=== PATIENT | male | born 1940 | race Caucasian/White ===

== ENCOUNTER 2016-07-18 06:28 | Day surgery (SDC) | payer MEDICARE ==
[2016-06-16 04:01] VITALS: BMI 24.7
[2016-07-18] MEDS ORDERED: CEFAZOLIN 1 GM VIAL ONE (06:37)
[2016-07-18 07:00] LABS: AUTOMATED EOSINOPHIL 3.3 % (0-5); AUTOMATED MONOCYTE 7.5 % (3-10); AUTOMATED NEUTROPHIL 77.2 % (45-76); MPV 7.4 fL (7.4-10.4)
[2016-07-18 07:07] LABS: BLOOD UREA NITROGEN 37 MG/DL (9-20); CALC CORRECTED 9.2 MG/DL (8.4-10.2); CALCIUM 8.4 MG/DL (8.4-10.2); CALCULATED OSMOLALITY 272 MOs/Kg (270-290); CHLORIDE 103 mEq/L (98-107); GLUCOSE 84 MG/DL (70-99); SODIUM LEVEL 137 mEq/L (137-146); TOTAL PROTEIN 6.8 G/DL (6.3-8.2)
[2016-07-18 07:24] LABS: LEUKOCYTES/URINE 2+ (NEGATIVE); NITRITE/URINE NEG (NEGATIVE); URINE OCCULT BLOOD NEG (NEG/TRACE)
[2016-07-18 07:37] LABS: WBC/URINE 20-30 (0-2)
[2016-07-18] MEDS ORDERED: HYDROmorphone 1 MG INJECTION IV PRN ×2 (07:39)
[2016-07-18] MEDS ORDERED: MEPERIDINE 25 MG/ML TUBEX IV PRN (07:39)
[2016-07-18] MEDS ORDERED: ONDANSETRON HCL 4 MG ODT TAB PO PRN (07:39)
[2016-07-18] MEDS ORDERED: FENTANYL 100 MCG/2 ML VIAL IV PRN ×2 (07:39)
[2016-07-18] MEDS ORDERED: ONDANSETRON HCL 4 MG/2 ML VIAL IV PRN (07:39)
[2016-07-18] MEDS ORDERED: hydrALAZINE 20 MG/ML VIAL IV PRN (07:39)
[2016-07-18] MEDS ORDERED: PROMETHAZINE 25 MG/ML VIAL IV PRN (07:39)
[2016-07-18] MEDS ORDERED: LABETALOL 20 MG/4 ML SYRINGE IV PRN (07:39)
--- NOTE | 2016-07-18 07:40 | SC.ANESPOS ---
[id number], Hemodynamically Stable, Pain Control Adequate Phase I & II Recovery Complete: Yes Apparent Anesthesia Complication: No : N - Vital Signs Blood Pressure: 116/67 Pulse: 79 Resp Rate: 18 O2 Sat: 98 Temp: 98.2 F
--- NOTE | 2016-07-18 07:45 | HIM.ANES ---
Anesthesia Evaluation & Plan Diagnoses: OTHER RETENTION OF URINE (07/18/16) Consented Procedure: TRANSURETHRAL RESECTION AND VAPORIZATION OF PROSTATE GLAND - Focused Review of Systems Cardiac History: Yes: Hx Hypertension, Hx Afib/Aflutter, Hx Cardiac Disorders, Hx Abnormal Cholesterol/Hyperlipidemia No: Hx Deep Vein Thrombosis HEENT: Yes: Hx Hearing Impairment (CHEESH-NA), Hx Vision Problem (PRESCRIPTION GLASSES ), Other HEENT Problems Respiratory: Yes: Hx Snoring No: Hx Emphysema, Hx Chronic Obstructive Pulmonary Disease (COPD), Hx Home O2 , Hx Recent Cold/Flu Gastrointestinal: Yes: Hx Colonoscopy No: Hx Gastroesophageal Reflux Disease, Hx Gastrointestinal Disorders Genitourinary: No: Hx Renal Failure Neurological/Musculoskeletal: Yes: Hx Dementia, Hx Back Pain, Hx Numbness, Tingling, Weakness in Arms & Legs (BILATERAL FEET), Hx Neurological Disorders Other Neurological Problems: DIABETIC NEUROPATHY Psychological: No Hx Depression, No Hx Mental/Emotional Disorders Endocrine: Yes: Hx Non-Insulin Dependent Diabetes Blood/Autoimmune: Yes: Hx Anemia No: Hx Blood Transfusions, Hx AIDS, Hx Hepatitis (type) Smoking Status: Never smoker Hx Stress Test (date): No Hx Echocardiogram (date): No Hx Chest Xray (date): Yes (06/11/16 SCARRING LEFT LUNG BASE NO EDEMA) Surgical History: Yes: Ablation ([address] YEE IN [place]), Cholecystectomy No: T&A Other Surgical History: ABLATION AT [facility] - Focused Physical Exam NPO since: 07/17/16 Mallampati: Class II Thyromental Distance: Greater than 3 Neck: Full Range of Motion Dental: Normal - no significant findings Cardiovascular/Chest: Normal Respiratory: Lungs clear Any problems with anesthesia, including nausea and vomiting?: Yes (N&V) Any relatives with a history of Malignant Hyperthermia?: No Beta Nisha given (if appropriate): Yes Does the patient have a history of Motion Sickness-: No Other: Problem List Problem Status Onset Cellulitis of foot Acute Diabetes mellitus Acute Diabetic foot ulcer Acute Hematuria Acute Leukocytosis Acute UTI (urinary tract infection) Acute Urinary retention Acute Urinary retention with incomplete bladder emptying Acute Afib Chronic Hypertension Chronic CBC/BMP/Other 07/18/16 06:45 07/18/16 06:45 Allergies Allergy/AdvReac Type Severity Reaction Status Date / Time cefodizime Allergy Hypertensio Verified 07/18/16 07:16 n Home Medications Medication Instructions Recorded Last Taken Type Amlodipine [Norvasc] 5 mg PO DAILY 02/07/16 07/18/16 05:00 History Fenofibrate [Lofibra] 160 mg PO DAILY 02/07/16 07/17/16 06:00 History Lisinopril [Prinivil] 20 mg PO DAILY 02/07/16 07/18/16 05:00 History MetFORMIN (Immediate Release) 1,000 mg PO TID PRN 02/07/16 07/16/16 History [GLUCOPHAGE Immed Release] Carvedilol [Coreg] 25 mg PO BID 06/11/16 07/18/16 05:00 History Glipizide 10 mg PO BID 06/11/16 07/17/16 08:00 History Cephalexin Monohydrate [Keflex] 500 mg PO Q8H #30 cap 06/16/16 07/17/16 18:00 Rx Oxycodone Immediate Release 5 mg PO Q4H PRN #30 tablet 06/16/16 07/17/16 21:00 Rx [Oxycodone Immediate Release (OxyIR)] Aspirin [Aspirin EC] 81 mg PO DAILY 07/17/16 07/16/16 History Height and Weight Patient's height 6 ft 2 in Patient's weight 185 lb BMI 24.7 Vital Signs Temperature 98.2 F 07/18/16 07:40 Pulse Rate 79 07/18/16 07:40 Respiratory Rate 18 07/18/16 07:40 Blood Pressure 116/67 07/18/16 07:40 Pulse Oxygen Saturation 98 07/18/16 07:40 - Anesthetic Plan Anesthesia Type: General ASA Class: 3 -: I have examined this patient and reviewed the medical record. The patient has been assessed prior to anesthesia. Risks and benefits of anesthesia and anesthetic technique options have been discussed and all questions answered. The patient accepts the risk and desires me to proceed with the planned anesthetic.
[2016-07-18] MEDS ORDERED: Levofloxacin 500 mg/100 ml D5W 500 MG/100 ML RTU IV ONE (09:05)
[2016-07-18] MEDS ORDERED: MetFORMIN 1000 MG IMMED REL TAB PO PRN (10:39)
--- NOTE | 2016-07-18 10:49 | HIMOPRPT ---
DATE OF PROCEDURE: 07/18/16 PREOPERATIVE DIAGNOSIS: [Benign prostatic hypertrophy, with AUR. POSTOPERATIVE DIAGNOSIS: SAME. PROCEDURE PERFORMED: Transurethral resection and vaporization of the prostate gland. ANESTHESIA: General with LMA. ANESTHESIOLOGIST: SURGEON: David Jackman MD PROCEDURE IN DETAIL: The patient was brought to the operating room and general anesthesia with LMA was given. Once adequate level of anesthesia was obtained, the patient was placed in lithotomy position.The indwelling cath was removed . Genitalia were prepped and draped in usual sterile manner. Urethra was calibrated and dilated to size 30-Ghanaian with Frances sounds without any difficulty, and a 25.6-Ghanaian continuous flow resectoscope sheath was introduced into the bladder and the findings on the cystoscopy were confirmed. No bladder abnormality was noted. Both ureteral orifices were seen. They were effluxing clear urine. They were away from the resection site. The verumontanum was prominent and normal. No other abnormality was noted. The TURVP was started with the wedge electrode starting at 7 o'clock position on the right side and taken to 11 o'clock position. As the resection was in progress, hemostasis was secured with cautery. Subsequently bladder neck was resected posteriorly and leveled with the base of the prostate gland. Subsequently, on the left side, resection was carried out from 5 o'clock to 1 o' clock position anteriorly. As the resection was in progress, hemostasis was achieved with cautery. Tissue in anterior aspect of the prostatic urethra and the base of the prostate gland was resected next. Subsequently the wedge electrode was changed with wire-loop electrode and apical tissue was further resected. Hemostasis was excellent at the end of the procedure and all the tissue was irrigated out of the bladder with Ellik evacuator and sent for histological examination. In the end of the procedure, a 22 size 3-way Lelsie catheter was introduced in the bladder with the help of a stylette and left indwelling with 30 mL balloon inflated. Continuous bladder irrigation was started on the operating table and the patient returned to the recovery room in stable and satisfactory condition. Estimated blood loss was less than 200 cubic centimeters. No complications with the surgery. The patient tolerated the procedure well and will be kept overnight for observation and discharged tomorrow with a Leslie catheter in place.
[2016-07-18] MEDS ORDERED: FENTANYL 100 MCG/2 ML VIAL ONE (11:52)
[2016-07-18] MEDS ORDERED: Vaccine Screening Complete SCH (15:00)
[2016-07-18] MEDS ORDERED: ONDANSETRON HCL 4 MG/2 ML VIAL IV ONE (15:38)
[2016-07-18] MEDS ORDERED: MIDAZOLAM 2 MG/2 ML VIAL IV ONE (15:38)
[2016-07-18] MEDS ORDERED: LIDOCAINE 100 MG PFS IV ONE (15:38)
[2016-07-18] MEDS ORDERED: FENTANYL 100 MCG/2 ML VIAL IV ONE (15:38)
[2016-07-18] MEDS ORDERED: EPHEDrine 50 MG/ML VIAL IM ONE (15:38)
[2016-07-18] MEDS ORDERED: PROPOFOL 200 MG/20 ML VIAL IV ONE (15:38)
[2016-07-18] MEDS ORDERED: DEXAMETHASONE 4 MG/ML VIAL IV ONE (15:38)
[2016-07-18] MEDS: GLIPIZIDE 10 MG TAB PO SCH (17:20)
[2016-07-18] MEDS: D5W/LR 1,000 ML IV SCH (17:20)
[2016-07-18] MEDS: CARVEDILOL 25 MG TABLET PO SCH (21:40)
[2016-07-18] MEDS ORDERED: HYDROCODONE 5 MG/ACETAMIN 325 MG TAB PO PRN (23:46)
[2016-07-19] MEDS: GLIPIZIDE 10 MG TAB PO SCH (06:24)
[2016-07-19] MEDS: D5W/LR 1,000 ML IV SCH ×2 (06:30→09:21)
[2016-07-19 07:26] LABS: AUTOMATED BASOPHIL 0.3 % (0-2); AUTOMATED EOSINOPHIL 0.3 % (0-5); AUTOMATED LYMPH 9.3 % (17-44); AUTOMATED MONOCYTE 7.6 % (3-10); AUTOMATED NEUTROPHIL 82.5 % (45-76); MPV 7.4 fL (7.4-10.4)
[2016-07-19 07:42] LABS: BLOOD UREA NITROGEN 29 MG/DL (9-20); CALCIUM 8.4 MG/DL (8.4-10.2); CALCULATED OSMOLALITY 270 MOs/Kg (270-290); CHLORIDE 103 mEq/L (98-107); GLUCOSE 138 MG/DL (70-99); SODIUM LEVEL 136 mEq/L (137-146)
[2016-07-19] MEDS ORDERED: FENOFIBRATE 145 MG TAB PO SCH (08:00)
[2016-07-19] MEDS: CARVEDILOL 25 MG TABLET PO SCH (08:05)
[2016-07-19] MEDS ORDERED: AMLODIPINE 5 MG TAB PO SCH (09:00)
[2016-07-19] MEDS ORDERED: LISINOPRIL 20 MG TAB PO SCH (09:00)
[2016-07-19 09:40] VITALS: BP 125/67; PULSE 63; TEMP 96
[2016-07-19] MEDS ORDERED: Docusate Sodium 100 MG CAP PO PRN (12:53)
[2016-07-19] MEDS ORDERED: OXYCODONE HCL 5 MG TABLET PO PRN (12:54)
--- NOTE | 2016-07-19 12:57 | PCM.UROPRO ---
Post Op Day #: 1 Post-op Assessment: Reports: No new complaints, Feels better, Catheter draining WNL, Urine color WNL - Physical Exam Vital Signs: Temperature: 96 F (07/19/16 09:38) HR: 63 (07/19/16 09:38) RR: 18 (07/19/16 09:38) BP: 125/67 (07/19/16 09:38) Pulse Ox: 99 (07/19/16 09:38) General: Alert, Oriented x3, Cooperative, No acute distress Gastrointestinal: Soft Genitourinary: Catheter in Place Skin: Warm,Dry and Intact Result Diagrams: 07/19/16 06:25 07/19/16 06:25
[2016-07-19] MEDS ORDERED: LEVOFLOXACIN 500 MG TAB PO SCH (13:00)
--- NOTE | 2016-07-19 13:00 | PCM.DCS92 ---
- Final/Secondary Discharge Diagnosis (1) Hypertrophy of prostate with urinary retention Acute N40.1 - BENIGN PROSTATIC HYPERPLASIA WITH LOWER URINARY TRACT SYMP; R33.8 - OTHER RETENTION OF URINE Present on Admission: Yes Plan/Goal/Comment: PT WAS ADMITTED FOR THE turvp which he had on 07.18.16 and made an uneventful recovery. He is being discharged today to be followed in the office. Discharge Disposition: Home Discharge Condition: Good Cognitive Discharge Status: Unimpaired Fuctional Discharge Status: Independent, Wheelchair Assistance Home Medications/ New Prescriptions: No Action MetFORMIN (Immediate Release) [GLUCOPHAGE Immed Release] 1,000 mg PO BID PRN PRN Reason: BLOOD SUGAR Lisinopril [Prinivil] 20 mg PO DAILY Amlodipine [Norvasc] 5 mg PO DAILY Fenofibrate [Lofibra] 160 mg PO DAILY Carvedilol [Coreg] 25 mg PO BID Glipizide 10 mg PO BID Cephalexin Monohydrate [Keflex] 500 mg PO Q8H #30 cap Aspirin [Aspirin EC] 81 mg PO DAILY Oxycodone Immediate Release [Oxycodone Immediate Release (OxyIR)] 5 mg PO Q6H PRN PRN Reason: Pain Fluconazole [Diflucan] 150 mg PO TU Diet at Discharge: As Tolerated, Regular Activity: No Restrictions, As Tolerated - DC Summary Notes Hospital Course Note:: Discharge summary on patient named JAMARI IVORY admitted to [facility] on 07/18/16 by David Jackman MD. Date of discharge is []. Final diagnosis.: Prostate hypertrophy with urinary retention
[2016-07-23] MEDS ORDERED: FLUCONAZOLE 150 MG TAB PO SCH (09:00)
== END 2016-07-19 14:15 | disposition home or self-care (01) ==
LOC: SDC 06:28 → MPS3 13:45
PROVIDERS: ADMIT Urology; ATTEND Urology
PROC: 0VT08ZZ Resection of Prostate, Via Natural or Artificial Opening Endoscopic (ICD-10-PCS; principal; 2016-07-18 08:15)
DX: N40.1 Benign prostatic hyperplasia with lower urinary tract symptoms (principal); R33.8 Other retention of urine; I10 Essential (primary) hypertension; E11.9 Type 2 diabetes mellitus without complications; I73.9 Peripheral vascular disease, unspecified; Z79.84 Long term (current) use of oral hypoglycemic drugs; Z79.82 Long term (current) use of aspirin; Z79.899 Other long term (current) drug therapy
CPT/HCPCS: 52601; 80048; 80053; 81001; 82962; 85025; 87077; 87086; A9270; G0237; G0378; J1100; J1956; J2001; J2405; J2550; J3010; J3490; J0690; J2250